=== PATIENT | female | born 1990 | race Two or more races ===

== ENCOUNTER 2016-03-11 12:13 | Outpatient (CLI) | payer OTHER ==
[2016-03-11 12:34] VITALS: BMI 34.3
== END 2016-03-11 14:40 | disposition home or self-care (01) ==
LOC: FBCOUT 12:13 → FBC 12:18 → FBCOUT 14:40
PROVIDERS: ATTEND Family Medicine
DX: O47.9 False labor, unspecified (principal); Z3A.00 Weeks of gestation of pregnancy not specified

== ENCOUNTER 2016-03-12 05:10 | Outpatient (CLI) | payer OTHER ==
[2016-03-12 05:34] VITALS: BMI 41.1
[2016-03-12] MEDS ORDERED: MORPHINE SULFATE 4 MG/ML SYRINGE IM PRN (06:47)
[2016-03-12] MEDS ORDERED: PROMETHAZINE HCL 25 MG/ML VIAL IM ONE (06:47)
== END 2016-03-12 07:40 | disposition home or self-care (01) ==
LOC: FBC 05:10 → FBCOUT 05:10
PROVIDERS: ATTEND Family Medicine
DX: O47.9 False labor, unspecified (principal); Z3A.00 Weeks of gestation of pregnancy not specified

== ENCOUNTER 2016-03-12 13:18 | Inpatient (IN) | payer OTHER ==
[2016-03-12] MEDS ORDERED: IV START KIT ONE (13:55)
[2016-03-12] MEDS ORDERED: LACTATED RINGERS 1,000 ML ONE (13:56)
[2016-03-12] MEDS ORDERED: MINERAL OIL 25 ML BOT ONE (13:57)
[2016-03-12] MEDS ORDERED: LIDOCAINE Viscous 2% 15 ML UDCUP ONE (13:57)
[2016-03-12] MEDS ORDERED: OXYTOCIN IN LR 500 ML IV ONE ×2 (13:57→18:19)
[2016-03-12] MEDS ORDERED: LIDOCAINE 1% (PRES FREE) 30 ML VIAL ONE (13:57)
[2016-03-12] MEDS ORDERED: OXYTOCIN 10 UNITS/ML VIAL ONE (13:57)
[2016-03-12] MEDS ORDERED: PUMP TUBING ONE (13:57)
[2016-03-12] MEDS ORDERED: SODIUM CHLORIDE 0.9% FLUSH 10 ML ONE (14:10)
[2016-03-12 14:57] LABS: HEMATOCRIT 33.9 % (37.0-47.0); HEMOGLOBIN 11.5 gm/l (12.0-16.0); MEAN CELL VOLUME 90.4 fl (81.0-99.0); MEAN CORPUSCULAR HEMOGLOBIN 30.7 pg (27.0-31.0); MEAN CORPUSCULAR HGB CONC 33.9 g/dl (33.0-37.0); RED CELL DISTRIBUTION WIDTH 12.5 % (11.5-14.5)
[2016-03-12 15:03] VITALS: BMI 36.8
--- NOTE | 2016-03-12 16:51 | PCMAN ---
OB Admission Note - History : 2 Term: 0 : 0 Abortions (S&E): 1 Livin EDC:: 03/15/16 Gestational Age (weeks): 39 Days (#/7): 4 Admit Cervical Dilation:: 5 Admit Cervical Effacement (%):: 95 Admit Station:: -2 Admit Presentaton:: cephalic Membrane Status: Intact Labor Onset (Date): 03/12/16 Labor Onset (Time): 13:37 Contractions: Yes Contraction Frequency:: 1.5-4.5 Heart Rate:: 140 Status:: Cat 1 EFW:: 3.5 kg Summary of Course:: Uncomplicated except for UTI and excessive weight gain. Presented in active labor after being sent home earlier in the day not in labor. Good Fm, no lof or vb. - Labs Blood Type: A (+) positive Rubella Status: Immune GBS Status: Negative Abnormal Labs: None - Review of Systems No f/c/n/v. No visual changes, RUQ pain, new swelling or severe ASHBY. She does have mild ASHBY today and has not eaten or taken in much fluid. - Physical Exam General: Afebrile, Acute Distress (with Uc's, o/w comfortable.) Psych/Mental Status: Mood/Affect Appropriate Neurological: Normal Speech Lungs: Clear to Auscultation Bilaterally Cardiovascular: Regular Rate and Rhythm, No Murmur Genitourinary: Normal Female Genitalia Extremities: Edema (1+ BLE) Skin: Warm, Dry, No Rash - Problems (1) Normal labor Status: Acute Code: O80 Assessment/Plan: Pt. presented in active labor, progressing with Cat 1 FHT's so on IA. Discussed positional changes, IV pain meds, epidural. Pt. desires no pain meds or epidural a this time. Having some back pain so will raboso and get in hands and knees position. Questions answered. Pt.'s partner present and his questions answered as well. Will admit for expectant management of labor.
--- NOTE | 2016-03-12 19:04 | PDOC36 ---
Provider Note Subject: Cervix 8-9/100/0. Cat 1 fht's with some occ cat 2 for mild variable. Tolerating labor okay with assistance of and sister. Does not want an epidural or pain meds. Changing positions. SROM with mec. Will have resp/ resus rn for delivery. Encouragement provided. Wants to try jacuzzi. VSSAF. Questions answered.
--- NOTE | 2016-03-12 20:19 | PDOC36 ---
Provider Note Subject: 9.5/100/0. VSSAF. Coping better after jacuzzi. Cat 1 FHT's currently.
[2016-03-12] MEDS ORDERED: BLISTEX LIPSTICK 1 EACH TP PRN (20:44)
[2016-03-12] MEDS: LACTATED RINGERS 1,000 ML IV SCH (23:05)
--- NOTE | 2016-03-12 23:06 | PDOC36 ---
Provider Note Subject: Pt. complete and pushing with very little progress. Cat 1 FHT's, vssaf. Offered epidural for rest and laboring down and pt. refusing. Is now pushing in squatting/standing positions. Baby tolerating well. WIll recheck and have discussed possible need for primary c section if failure to descend. EFW 8-9 # . Will also give some fluid.
[2016-03-12] MEDS ORDERED: MORPHINE SULFATE (DURAMORPH) 1 MG/ML 10ML AMP ONE (23:59)
[2016-03-13] MEDS: LACTATED RINGERS 1,000 ML IV SCH ×3 (00:12→20:36)
--- NOTE | 2016-03-13 00:12 | PDOC36 ---
Provider Note Subject: Pt. with stage 2 arrest. Pushing effectively, developed significant caput and head did not pass +1 station. Fht's cat 2 with some tachycardia. Positional changes and resting with uc's, no longer pushing helped. Also gave 1L bolus of LR with some resolution. Discussed at length with the patient and her family, failure to descend and now with some intolerance of labor. OFfered rest with epidural as long as fht's would tolerate and pt. declined. Fully informed consent reviewed with pt and her for primary c section including but not limited to bleeding, infection, damage to bowel/bladder, blood transfusion and inherent risks of c section to be discussed by anesthesia. Pt. and had questions answered and agreed with plan.
[2016-03-13] MEDS ORDERED: LACTATED RINGERS 1,000 ML IV SCH (00:15)
[2016-03-13] MEDS ORDERED: CLINDAMYCIN 600 MG PREMIX 600 MG in Premix (D5W) 50 ml 1 EACH IV PRN (00:17)
[2016-03-13] MEDS ORDERED: SPINAL PROCEDURAL TRAY 1 EACH ONE (00:22)
[2016-03-13] MEDS ORDERED: OXYTOCIN 10 UNITS/ML VIAL ONE ×6 (00:22→01:59)
[2016-03-13] MEDS ORDERED: CLINDAMYCIN 900 MG PREMIX 900 MG in Premix (D5W) 50 ml 1 EACH IV PRN (00:23)
[2016-03-13] MEDS ORDERED: EPHEDRINE SULFATE 50 MG/ML 1ML VIAL ONE (00:23)
[2016-03-13] MEDS ORDERED: CLINDAMYCIN 900 MG PREMIX 50 ML IV ONE (00:32)
[2016-03-13] MEDS ORDERED: ONDANSETRON 4 MG/2ML 2 ML VIAL ONE (01:08)
[2016-03-13] MEDS ORDERED: DIPHENHYDRAMINE HCL 50 MG/1 ML VIAL ONE (01:08)
[2016-03-13] MEDS ORDERED: LANOLIN 50 APPLIC/7G TUBE TP PRN (02:11)
--- NOTE | 2016-03-13 02:11 | PCMBPN ---
Brief Post Op Note: Date of Procedure: 03/13/16 Start Time: see anesth record Preoperative Diagnosis: 1. term iup, active labor, stage 2 arrest Postoperative Diagnosis: 1. same, op/asynclitic cephalic presentation Procedure: primary c section Surgeon: Annia Ragsdale MD Assist:Dr. Badillo Anesthesia: Mainor Wright CRNA. SPinal. Findings: vertex/op/asynclitic male. Normal tubes and ovaries, uterus and placenta. Condition: stable Complications: small extension of uterine incision to Left lower segment. IV Fluids: 2000 mLs of LR Urine Output: 50 mLs and bloody Estimated Blood Loss: 600 mLs Tourniquet Time: N/A Specimens: N/A Implants: n/a Drains: [N/A]
[2016-03-13] MEDS ORDERED: NALOXONE HCL 0.4 MG/ML VIAL IV PRN (02:30)
[2016-03-13] MEDS ORDERED: NALBUPHINE HCL 20 MG/ML AMP IV PRN (02:30)
[2016-03-13] MEDS ORDERED: ONDANSETRON 4 MG/2ML 2 ML VIAL IV PRN (02:30)
[2016-03-13] MEDS ORDERED: PROMETHAZINE HCL 25 MG/ML VIAL IM PRN (02:30)
[2016-03-13] MEDS ORDERED: EPHEDRINE SULFATE 50 MG/ML 1ML VIAL IV PRN (02:30)
[2016-03-13] MEDS ORDERED: DIPHENHYDRAMINE HCL 50 MG/1 ML VIAL IV PRN (02:30)
[2016-03-13] MEDS ORDERED: HYDROMORPHONE HCL 1 MG/ML SYRINGE IV PRN (02:30)
[2016-03-13] MEDS ORDERED: PNEUMOCOCCAL 23-VAL P-SAC VAC 0.5 ML VIAL SUB-Q V ONE (02:44)
[2016-03-13] MEDS ORDERED: LACTATED RINGERS 1,000 ML ONE (03:38)
[2016-03-13] MEDS ORDERED: IV START KIT ONE (03:38)
--- NOTE | 2016-03-13 08:18 | OP ---
Petra Manuel : 1990 [id number] DATE OF SURGERY: 03/13/2016 PREOPERATIVE DIAGNOSES: 1. Term intrauterine . 2. Active labor. 3. Stage II arrest. POSTOPERATIVE DIAGNOSES: 1. Term intrauterine . 2. Active labor. 3. Stage II arrest. 4. Occiput posterior position and asynclitic presentation. PROCEDURE: Primary section. SURGEON: Annia Ragsdale M.D. COST ESTIMATING MANAGER: Dr. Sabrina Badillo. ANESTHESIA: MELINA Taveras, Spinal. BRIEF DESCRIPTION: This is a 25-year-old G2, P0, now P1 who presented in active labor. She solely progressed to complete and had stage II arrest and was taken for a primary section. DESCRIPTION OF OPERATION: The patient was taken to the operating room where spinal anesthesia was placed without difficulty. She was then placed in the supine position and prepped and draped for a sterile procedure. A pfannenstiel incision was then made sharply through the subcutaneous tissue to the level of the rectus fascia. The rectus fascia was then transversely incised with Frost Scissors. The anterior fascia was then grasped with Young clamps and dissected free of the underlying rectus muscles with gentle blunt dissection as well as Frost scissors. This was also performed inferiorly. The rectus muscles were easily with blunt dissection and had some diastasis. The parietal peritoneum as well as the peritoneum were then entered bluntly and gentle traction applied for excellent visualization of the uterus. A bladder blade was placed. The vesicouterine peritoneum was grasped and transversely incised for development of the bladder flap. The bladder blade was then replaced. The uterus was then entered with a return of meconium stained fluid. The incision was extended laterally with gentle traction. The infants head was then flexed and elevated through the uterine incision with a moderate amount of difficulty because of its occiput posterior presentation. The rest of the infant was then delivered with moderate fundal pressure and atraumatically. The cord was then clamped after delayed approximately 1 minute. The cord was clamped and cut and the passed register nurse for resuscitation. Infant was vigorous throughout. Cord blood was collected and sent to the lab. The placenta was then delivered manually, intact, and with 3 vessel cord. The uterus was delivered on the abdominal cavity. The remaining blood contents wiped free with a clean dry lap. The uterine incision was grasped with ring forceps and followed there was note of a left lower uterine segment extension. The uterus was also noted to be quite bulgy at that point and Pitocin was given directly into the uterus approximately 10 units. Pitocin was also running in the intravenous fluid. The extension was then repaired with 0 Vicryl running suture in the usual fashion. The rest of the uterine incision was also repaired with 0 Vicryl running suture. A secondary imbricating layer with 0 Vicryl running suture was also placed and there was excellent hemostasis. The tubes and ovaries appeared within normal limits. The bloody contents of the abdominal cavity were wiped free with a clean dry lap and the uterus was then placed back into the abdominal cavity. The uterine incision was once again inspected and showed excellent hemostasis. The parietal peritoneum was then grasped and closed with 2-0 Vicryl running suture in the usual fashion. The rectus muscle was then approximated with a figure of eight stitch. There was no subfascial bleeding and the fascia was then closed with 0 Vicryl running suture starting at each corner and proceeding towards the midline. There was excellent subcutaneous hemostasis and the skin was then closed with a chiara needle in a subcuticular stitch. All sponge and needle counts were reported as correct. Estimated blood loss was 600 mL. Fluid was given 2 liters and urine output was approximately 50 mL of slightly blood urine. Of note, when expressing blood from the uterus at the end of the procedure there was noted urine which had spilled around the Millan catheter. The Millan catheter was then removed and replaced. Patient was at that point then cleaned up and transported to postoperative recovery room in excellent condition. JOB: [id number]
[2016-03-13] MEDS: FERROUS SULFATE (65 Fe) 325 MG TABLET PO SCH (16:03)
[2016-03-13] MEDS: DOCUSATE SODIUM 100 MG CAPSULE PO SCH ×2 (16:03→20:33)
[2016-03-13] MEDS: OXYCODONE/ACETAMINOPHEN 5/325 MG TABLET PO PRN ×2 (16:03→20:33)
[2016-03-13] MEDS: PRENATAL VIT/FE FUMARATE/FA 1 TABLET PO SCH (16:03)
[2016-03-13] MEDS: CLOTRIMAZOLE 1% 15 APPLIC/15 G CREAM TP SCH (16:04)
[2016-03-14] MEDS ORDERED: DIPHENHYDRAMINE HCL 25 MG CAPSULE PO PRN (01:00)
[2016-03-14] MEDS ORDERED: ONDANSETRON 4 MG/2ML 2 ML VIAL IV PRN (01:00)
[2016-03-14] MEDS ORDERED: DIPHENHYDRAMINE HCL 50 MG/1 ML VIAL IV PRN (01:00)
[2016-03-14] MEDS: OXYCODONE/ACETAMINOPHEN 5/325 MG TABLET PO PRN ×4 (04:47→18:04)
[2016-03-14] MEDS: CLOTRIMAZOLE 1% 15 APPLIC/15 G CREAM TP SCH ×3 (04:57→21:12)
[2016-03-14] MEDS: LACTATED RINGERS 1,000 ML IV SCH ×2 (04:57→21:12)
[2016-03-14 06:51] LABS: HEMATOCRIT 27.7 % (37.0-47.0); HEMOGLOBIN 9.5 gm/l (12.0-16.0)
[2016-03-14] MEDS: FERROUS SULFATE (65 Fe) 325 MG TABLET PO SCH (12:17)
[2016-03-14] MEDS: PRENATAL VIT/FE FUMARATE/FA 1 TABLET PO SCH (12:17)
[2016-03-14] MEDS: DOCUSATE SODIUM 100 MG CAPSULE PO SCH ×2 (12:18→21:09)
--- NOTE | 2016-03-14 15:06 | PDOC44 ---
- Subjective Day: 1 Reports Pain Tolerable - Objective Temp Pulse Resp BP Pulse Ox 98.0 F 94 18 128/71 99 03/14/16 08:15 03/14/16 08:15 03/14/16 08:15 03/14/16 08:15 03/13/16 04:40 Lab Results 03/14/16 06:40 Hgb 9.5 L D Hct 27.7 L Current Medications Generic Name Dose Route Start Last Admin Trade Name Freq PRN Reason Stop Dose Admin Clotrimazole 1 applic 03/13/16 09:00 03/14/16 04:57 Lotrimin TP Not Given BID ESVIN Diphenhydramine HCl 25 mg 03/14/16 01:00 Benadryl PO Q6H PRN Itching (Mild/Moderate) Diphenhydramine HCl 25 mg 03/14/16 01:00 Benadryl IV Q6H PRN Itching (Severe) Docusate Sodium 100 mg 03/13/16 09:00 03/14/16 12:18 Colace PO 100 mg BID ESVIN Administration Emollient Ointment 1 applic 03/13/16 02:11 03/13/16 16:02 [id number] TP 1 tube PRN PRN Administration sore nipples Ferrous Sulfate 325 mg 03/13/16 09:00 03/14/16 12:17 Ferrous Sulfate PO 325 mg DAILY ESVIN Administration Lactated Ringer's 1,000 mls @ 125 mls/hr 03/13/16 02:15 03/14/16 04:57 Lactated Ringers IV Not Given .Q8H ESVIN Multivi/Iron Carb/Fe Sulf/FA/Prenat 1 tab 03/13/16 09:00 03/14/16 12:17 Plus PO 1 tab DAILY ESVIN Administration Ondansetron HCl 4 mg 03/14/16 01:00 Zofran IV Q6H PRN Nausea/Vomiting Oxycodone/Acetaminophen 1 - 2 tab 03/13/16 02:11 03/14/16 12:17 Percocet 5/325 PO 2 tab Q4H PRN Administration Pain (Moderate) Petrolatum/Paraffin/Mineral Oil 1 each 03/12/16 20:44 03/12/16 20:49 Blistex TP 1 tube PRN PRN Administration Dry and/or chapped lips Sodium Chloride 10 ml 01/03/17 17:00 03/13/16 20:37 Normal Saline 10ml Flush IV Not Given Q8HR ESVIN Sodium Chloride 10 ml 03/12/16 14:18 03/14/16 00:47 Normal Saline 10ml Flush IV 1 ml PRN PRN Administration - Physical Exam General: Afebrile Psych/Mental Status: Bonding Well Neurological: Grossly Intact, Alert, Oriented x 4 Lungs: Clear to Auscultation Bilaterally Cardiovascular: Regular Rate and Rhythm Fundus: Firm, Below Umbilicus Abdomen: Normal Bowel Sounds Wound COOK TORTILLA: No Well Approximated - Problems:Assessment/Plan (1) Delivery by section of full-term Status: Acute Assessment/Plan: Doing well Normal exam Encourage Continue routine care (2) Acute post-hemorrhagic anemia Status: Acute Assessment/Plan: hgb 9.5, treated with iron Disposition: Stable
[2016-03-14] MEDS: IBUPROFEN 800 MG TABLET PO PRN (21:10)
[2016-03-15] MEDS: IBUPROFEN 800 MG TABLET PO PRN ×2 (03:30→13:49)
[2016-03-15] MEDS: OXYCODONE/ACETAMINOPHEN 5/325 MG TABLET PO PRN ×3 (03:30→13:49)
[2016-03-15 07:49] VITALS: BP 112/71
[2016-03-15] MEDS: DOCUSATE SODIUM 100 MG CAPSULE PO SCH (07:50)
[2016-03-15] MEDS: PRENATAL VIT/FE FUMARATE/FA 1 TABLET PO SCH (07:50)
[2016-03-15] MEDS: FERROUS SULFATE (65 Fe) 325 MG TABLET PO SCH (07:50)
[2016-03-15] MEDS: CLOTRIMAZOLE 1% 15 APPLIC/15 G CREAM TP SCH (07:58)
--- NOTE | 2016-03-15 13:17 | PDOC39B ---
Hospital Course: ADMIT DATE: 03/12/16 DISCHARGE DATE: 03/15/16 ADMISSION DIAGNOSES: Active labor at term PROCEDURES: Primary Cesarian Section for stage II arrest HISTORY OF PRESENT ILLNESS/HOSPITAL COURSE: 25 year old G2 T0 L0 at 39 weeks 4 days presented in labor and progressed to full dilation but then arrested in stage II and was taken for a primary cesarian section. Please refer to details of this surgery as dictated by Dr. Ragsdale. By day of discharge the patient is ambulating, eating, voiding, and passing flatus without difficulty. Pain is controlled and lochia is appropriate. She is . - Physical Exam Vital Signs: Temp Pulse Resp BP Pulse Ox 98.1 F 90 18 112/71 99 03/15/16 07:45 03/15/16 07:45 03/15/16 07:45 03/15/16 07:45 03/15/16 02:42 General: Afebrile, No Acute Distress Neurological: Alert, Oriented x 4 Lungs: Clear to Auscultation Bilaterally Cardiovascular: Regular Rate and Rhythm Fundus: Firm, Midline Extremities: Full ROM, No Edema Skin: Normal Color, Warm, Dry, Intact, No Rash Wound: Dressing Clean/Dry/Intact, Well Approximated - Discharge Diagnosis (1) Delivery by section of full-term infant Status: Acute Assessment/Plan: POD 2 after pC/S for stage II arrest. Nl exam and vitals. +BF. (2) Acute post-hemorrhagic anemia Status: Acute Assessment/Plan: hgb 9.5, treated with iron - Discharge Plan Condition: Good Disposition: Home Prescriptions: Docusate Sodium [COLACE 100 MG CAPSULE (SHF)] 100 mg PO BID PRN #60 cap PRN Reason: Constipation Docusate Sodium [COLACE 100 MG CAPSULE (SHF)] 100 mg PO BID PRN #60 cap PRN Reason: Constipation Ibuprofen [Motrin] 800 mg PO TID PRN #30 tablet PRN Reason: Pain FERROUS SULFATE (65 Fe) [IRON FERROUS SULFATE 325 MG TABLET (SHF)] 325 mg PO BID #60 tab FERROUS SULFATE (65 Fe) [IRON FERROUS SULFATE 325 MG TABLET (SHF)] 325 mg PO BID #60 tab Oxycodone HCl/Acetaminophen [PERCOCET 5/325 MG TABLET (SHF)] 1 tab PO Q4-6H PRN #20 tab PRN Reason: Severe Pain Oxycodone HCl/Acetaminophen [PERCOCET 5/325 MG TABLET (SHF)] 1 tab PO Q4-6H PRN #20 tab PRN Reason: Severe Pain Follow-Up: Janett Iglesias FNP [Referring] - In 2 weeks
== END 2016-03-15 14:26 | disposition home or self-care (01) | DRG 766 ==
LOC: FBCOUT 13:18 → FBC 13:49
PROVIDERS: ADMIT Family Medicine; ATTEND Family Medicine
PROC: 10D00Z1 Extraction of Products of Conception, Low, Open Approach (ICD-10-PCS; principal; 2016-03-13)
DX: O77.0 Labor and delivery complicated by meconium in amniotic fluid (principal); O62.1 Secondary uterine inertia; O64.0XX0 Obstructed labor due to incomplete rotation of fetal head, not applicable or unspecified; Z3A.39 39 weeks gestation of pregnancy; Z37.0 Single live birth

== ENCOUNTER 2016-03-23 21:05 | Emergency (ER) | payer OTHER ==
[2016-03-23] MEDS ORDERED: IOPAMIDOL 370 (76%) 100 ML VIAL IV ONE (21:06)
[2016-03-23 22:42] LABS: SPECIFIC GRAVITY 1.015 (1.001-1.030); URINE BILIRUBIN NEGATIVE (NEGATIVE); URINE BLOOD 4+ (NEGATIVE); URINE GLUCOSE (UA) NEGATIVE (NEGATIVE); URINE LEUKOCYTE ESTERASE 1+ (NEGATIVE); URINE NITRITE NEGATIVE (NEGATIVE); URINE PROTEIN NEGATIVE (NEGATIVE); URINE UROBILINOGEN NORMAL (0-1 mg/dl)
[2016-03-23 22:45] LABS: HCG,QUALITATIVE URINE NEGATIVE
[2016-03-23 22:46] LABS: URINE APPEARANCE HAZY; URINE COLOR YELLOW
[2016-03-23 23:04] LABS: URINE BACTERIA 1+; URINE RBC >100 /hpf; URINE WBC >100 /hpf
[2016-03-24 01:18] LABS: ABSOLUTE NEUTROPHIL COUNT 8.4 K/mm3 (1.8-7.7); BASO % 0.3 % (0.2-1.0); EOS # 0.2 (0.0-0.5); HEMATOCRIT 34.4 % (37.0-47.0); HEMOGLOBIN 11.2 gm/l (12.0-16.0); IMM NEUT # 0.1 K/mm3 (0-0.2); IMM NEUT% 0.8 % (0-1); LYMPH % 17.6 % (15-45); MEAN CORPUSCULAR HEMOGLOBIN 30.3 pg (27.0-31.0); MEAN CORPUSCULAR HGB CONC 32.6 g/dl (33.0-37.0); MEAN PLATELET VOLUME 9.7 fl (7.4-10.4); MONO # 0.6 (0.0-0.8); MONO % 5.3 % (4-12); PLATELET COUNT 367 K/mm3 (130-400); RED CELL DISTRIBUTION WIDTH 12.2 % (11.5-14.5)
[2016-03-24 01:36] LABS: ALB/GLOB RATIO 0.9 (>1.0); ALBUMIN 3.8 gm/dL (3.5-5.7); CALCIUM 9.6 mg/dL (8.6-10.3)
[2016-03-24] MEDS ORDERED: LACTATED RINGERS 1,000 ML ONE (02:14)
[2016-03-24] MEDS ORDERED: ACETAMINOPHEN 325 MG TABLET ONE (02:32)
--- NOTE | 2016-03-24 08:03 | CT ---
Name: TAYO BURNHAM Exam: CT Angiogram of the chest with contrast Comparison: None Clinical History:Chest pain and mid back pain Procedure: Helical CT using multidetector technique was applied to the chest during rapid intravenous administration of 80 cc Isovue-370. MIP reconstructions were obtained on the CT scanner. Automated dose reduction technique was used to minimize patient radiation dose. Findings: CT angiogram of the chest (contrast enhanced): Heart is nonenlarged. There is no pericardial effusion. Aorta is normal caliber and there is a common origin for the innominate artery and left common carotid artery. Injection is made via the right. Limited views thyroid gland show no abnormality. There is no suspicious axillary, mediastinal or hilar adenopathy. Large airways are clear. There is no pulmonary embolus. Lungs are clear. There is a small hiatal hernia. Structures below the diaphragm are unremarkable. Regional skeleton is within normal limits. Impression: No pulmonary embolus Note: Findings were transmitted to the emergency Department from stat rad at 0334 hours
--- NOTE | 2016-03-24 08:04 | RAD ---
Name: TAYO BURNHAM Exam: Two-view chest Comparison: None Clinical history: Chest pain and back pain Findings: 2 views of the chest are submitted. The heart mediastinum and hilar structures are within normal limits. There is no failure, infiltrate, pleural effusion or pneumothorax. Regional skeleton is within normal limits. Impression: No acute cardiopulmonary process
== END 2016-03-24 04:02 | disposition home or self-care (01) ==
LOC: ED 21:05
DX: R07.9 Chest pain, unspecified (principal); J45.909 Unspecified asthma, uncomplicated; Z79.899 Other long term (current) drug therapy; Z88.0 Allergy status to penicillin
CPT/HCPCS: 83690; 85379; 81025; 85025; 87086; 80053; 84484; 81001; 36415; 71020; 71275; 87804; 99284 ×2; 96360; A9270; J7120; Q9967